=== PATIENT | female | born 1970 | race Caucasian/White ===

== ENCOUNTER 2019-07-24 00:44 | Observation (INO) ==
[2019-07-24] MEDS ORDERED: *HR* OxyCODONE/APAP 5/325 TABLET PO ONE (01:05)
[2019-07-24] MEDS ORDERED: Tdap (Boostrix) Vaccine 0.5 ML SYRINGE IM ONE (01:05)
--- NOTE | 2019-07-24 01:05 | Emergency Department Note ---
Disposition Clinical Impression: Cellulitis of lower extremity Qualifiers: Laterality: unspecified laterality Qualified Code(s): L03.119 - Cellulitis of unspecified part of limb Disposition: Admitted As Inpatient Condition: Fair Time of Disposition: 02:53 General Adult HPI - General Chief complaint: ED Extremity Problem,Nontraumatic Stated complaint: BLE redness/pain Time Seen by Provider: 07/24/19 00:52 Source: patient, family Limitations: no limitations Nursing Notes Reviewed: Yes Vital Signs Reviewed: Yes - History of Present Illness HPI Narrative: 48 year old female presents with bilateral lower extremities redness and swelling. Pt stated it started from a spider bite 4 months ago in left foot. The redness and swelling are spreading from left foot to right malin. Pt reported worsening pain and swelling now. No chills and fever. No history of diabetes. Pt denied any treatment since it happened. out of date TD vaccination. Onset (ago): month(s) (4) Pain Scale: 9 - Related Data Home Medications Medication Instructions Recorded Confirmed No Known Home Drugs 07/24/19 07/24/19 Allergies Allergy/AdvReac Type Severity Reaction Status Date / Time No Known Allergies Allergy Verified 07/24/19 00:47 Constitutional: Denies: fever, chills Eyes: Denies: eye pain ENT ED: Denies: ear pain Cardiovascular: Denies: chest pain Respiratory: Denies: cough Gastrointestinal: Denies: abdominal pain Genitourinary: Denies: urgency Musculoskeletal: Denies: back pain Integumentary: Reports: rash, lesions Neurological: Denies: headache Psychiatric: Denies: anxiety Endocrine: Denies: fatigue Hematological/Lymphatic: Denies: easy bleeding Allergic/Immunologic: Denies: facial swelling Past Medical History - Past Medical History Medical history: Reports: no medical history - Social History Smoking Status: Current every day smoker Alcohol use: Reports: none Drug use: Reports: none Physical Exam - General Limitations: no limitations General appearance: alert, in no apparent distress - Head Head exam: atraumatic - Eye Eye exam: Present: normal appearance - ENT ENT exam: normal exam - Neck Neck exam: Present: normal inspection - Chest Chest inspection: Present: normal inspection - Respiratory Respiratory exam: Present: normal lung sounds bilaterally - Cardiovascular Cardiovascular exam: Present: regular rate - Abdominal Exam Abdominal exam: Present: soft, Non-Tender - Expanded Lower Extremity Exam Lower leg exam: Present: tenderness (right malin and lower leg redness, swelling, warmth and tender to palpation, erythematous area: 10x30 cm), swelling. Absent: normal inspection Foot/toe exam: Present: tenderness (dorsal side left foot erythema, swelling, warmth and tender to palpation, erythematous area 6x10 cm), swelling. Absent: normal inspection Course Vital Signs Temperature 98.2 F 07/24/19 00:45 Pulse Rate 92 07/24/19 00:45 Respiratory Rate 20 07/24/19 00:45 Blood Pressure 145/86 07/24/19 00:45 O2 Sat by Pulse Oximetry 100 07/24/19 00:45 Temperature 98.8 F 07/24/19 02:40 Pulse Rate 78 07/24/19 02:40 Respiratory Rate 20 07/24/19 02:40 Blood Pressure 128/78 07/24/19 02:40 O2 Sat by Pulse Oximetry 97 07/24/19 02:40 Oxygen Delivery Oxygen Delivery Room Air Medical Decision Making - MDM Narrative Medical decision making narrative: 48 year old female presents with bilateral legs pain and swelling for 4 months. It started from spider bite on left foot. It got bigger and spread to right malin. Pt denied diabetes. pt didn't seek treatment. Physical exam: right lower leg swelling, erythema, warmth and tender to palpation, peeling skin, clear liquid sipping, no neurovascular deficit in right foot; dorsal side left foot swelling, erythema, warmth and tender to palpation. Impression: cellulites. blood culture and antibiotics given in ER. Pt need to be admitted for IV antib iotics and pain control. Spoke with Hospitalist Dr. Eaton. pt is accepted. CT of bilateral lower extremities ordered to rule out oseteomylitis. - Lab Data Lab results reviewed: Yes I reviewed the patient's lab results. Result diagrams: 07/24/19 01:00 07/24/19 01:00 Lab Results 07/24/19 07/24/19 07/24/19 Range/Units 01:00 01:00 01:18 WBC 10.3 (4.3-11.1) K/mcL RBC 4.61 (3.82-4.97) M/mcL Hgb 12.8 (11.5-15.4) g/dL Hct 40.0 (35.3-44.9) % MCV 86.8 (83.0-100.0) fL MCH 27.8 L (28.0-33.3) pg MCHC 32.0 (31.6-35.5) g/dL RDW 14.9 H (11.5-14.5) % Plt Count 423 H (140-400) K/mcL MPV 9.1 L (9.4-12.4) fL Immature Gran % 0.6 (0-4) % Seg Neutrophils % 58.8 % Lymphocytes % 24.8 % Monocytes % 5.6 % Eosinophils % 9.5 % Basophils % 0.7 % Neutrophils # 6.1 (1.6-8.9) K/mcL Lymphocytes # 2.5 (0.6-4.6) K/mcL Monocytes # 0.6 (0.0-1.3) K/mcL Eosinophils # 1.0 H (0.0-0.6) K/mcL Basophils # 0.1 (0.0-0.2) K/mcL ESR 60 H (0-15) mm/hr Sodium 139 (136-145) mEq/L Potassium 3.8 (3.5-5.1) mEq/L Chloride 102 (98-107) mEq/L Carbon Dioxide 29 (23-29) mEq/L BUN 11 (6-20) mg/dL Creatinine 0.93 (0.60-1.20) mg/dL Est GFR ( Amer) > 60 (> 60) Est GFR (Non-Af Amer) > 60 (> 60) BUN/Creatinine Ratio 12 (6-26) Glucose 95 (70-105) mg/dL Calculated Osmolality 287 (280-300) Lactic Acid (0.5-2.2) mmol/L Calcium 9.3 (8.6-10.3) mg/dL Total Bilirubin 0.3 (0.3-1.0) mg/dL AST 12 L (13-39) Units/L ALT 11 (7-52) Units/L Alkaline Phosphatase 151 H (34-104) Units/L C-Reactive Protein 44 H (Less than 10) mg/L Serum Total Protein 7.5 (6.4-8.9) g/dL Albumin 3.9 (3.5-5.7) g/dL Globulin 3.6 H (2.4-3.5) g/dL Albumin/Globulin Ratio 1.1 (1.1-2.2) 07/24/19 Range/Units 01:18 WBC (4.3-11.1) K/mcL RBC (3.82-4.97) M/mcL Hgb (11.5-15.4) g/dL Hct (35.3-44.9) % MCV (83.0-100.0) fL MCH (28.0-33.3) pg MCHC (31.6-35.5) g/dL RDW (11.5-14.5) % Plt Count (140-400) K/mcL MPV (9.4-12.4) fL Immature Gran % (0-4) % Seg Neutrophils % % Lymphocytes % % Monocytes % % Eosinophils % % Basophils % % Neutrophils # (1.6-8.9) K/mcL Lymphocytes # (0.6-4.6) K/mcL Monocytes # (0.0-1.3) K/mcL Eosinophils # (0.0-0.6) K/mcL Basophils # (0.0-0.2) K/mcL ESR (0-15) mm/hr Sodium (136-145) mEq/L Potassium (3.5-5.1) mEq/L Chloride (98-107) mEq/L Carbon Dioxide (23-29) mEq/L BUN (6-20) mg/dL Creatinine (0.60-1.20) mg/dL Est GFR ( Amer) (> 60) Est GFR (Non-Af Amer) (> 60) BUN/Creatinine Ratio (6-26) Glucose (70-105) mg/dL Calculated Osmolality (280-300) Lactic Acid 1.1 (0.5-2.2) mmol/L Calcium (8.6-10.3) mg/dL Total Bilirubin (0.3-1.0) mg/dL AST (13-39) Units/L ALT (7-52) Units/L Alkaline Phosphatase (34-104) Units/L C-Reactive Protein (Less than 10) mg/L Serum Total Protein (6.4-8.9) g/dL Albumin (3.5-5.7) g/dL Globulin (2.4-3.5) g/dL Albumin/Globulin Ratio (1.1-2.2)
[2019-07-24] MEDS ORDERED: Piperacillin/Tazobactam 3.375 GM in 0.9 % Sodium Chloride Mini Bag 100 ML IVPB ONE (01:08)
[2019-07-24 01:55] LABS: Alanine Aminotransferase 11 Units/L (7-52); Albumin 3.9 g/dL (3.5-5.7); Albumin/Globulin Ratio 1.1 (1.1-2.2); Alkaline Phosphatase 151 Units/L (34-104); Aspartate Amino Transferase 12 Units/L (13-39); BUN/Creatinine Ratio 12 (6-26); Bilirubin,Total 0.3 mg/dL (0.3-1.0); Blood Urea Nitrogen 11 mg/dL (6-20); C-Reactive Protein 44 mg/L (Less than 10); Calcium 9.3 mg/dL (8.6-10.3); Carbon Dioxide 29 mEq/L (23-29); Chloride 102 mEq/L (98-107); Globulin 3.6 g/dL (2.4-3.5); Glucose 95 mg/dL (70-105); Osmolality,Calculated 287 (280-300); Potassium 3.8 mEq/L (3.5-5.1); Sodium 139 mEq/L (136-145); Total Protein 7.5 g/dL (6.4-8.9); eGFR For African Americans > 60 (> 60); eGFR For Non-African Americans > 60 (> 60)
[2019-07-24 02:02] LABS: Basophils # 0.1 K/mcL (0.0-0.2); Basophils % 0.7 %; Eosinophils % 9.5 %; Hemoglobin 12.8 g/dL (11.5-15.4); Immature Granulocytes % 0.6 % (0-4); Lymphocytes # 2.5 K/mcL (0.6-4.6); Lymphocytes % 24.8 %; Mean Corpuscular Hemoglobin 27.8 pg (28.0-33.3); Mean Corpuscular Volume 86.8 fL (83.0-100.0); Mean Platelet Volume 9.1 fL (9.4-12.4); Monocytes # 0.6 K/mcL (0.0-1.3); Monocytes % 5.6 %; Neutrophils # 6.1 K/mcL (1.6-8.9); Platelet Count 423 K/mcL (140-400); Red Blood Count 4.61 M/mcL (3.82-4.97); Red Cell Distribution Width 14.9 % (11.5-14.5); Segmented Neutrophils % 58.8 %; White Blood Count 10.3 K/mcL (4.3-11.1)
[2019-07-24] MEDS ORDERED: Isovue-370 500 ML BOTTLE IVP ONE (02:30)
--- NOTE | 2019-07-24 06:08 | Internal Med History&Physical ---
Date of Encounter: 07/24/19 Time of Encounter: 05:57 Internal Medicine - H&P: HPI Chief complaint: left foot, and right leg pain. History of present illness: Ms. Alanis is a 48 year old pleasant functional female with past medical history of class III obesity, and no primary xtof8pmf not seen a provider for many years) presented to the ED for left foot and right leg pain. [id number] encounter occurred at 5:30am. Patient reported 4 months ago a lesion developed looking like spider bite was found on her left foot dorsal anterior aspect that was pruritic, and estefany thematous. Patient started applying topical triple antibiotic ointment daily with dressing changes and continued to progress with sloughing of the skin, drainage, erythema. The lesion grew involving the medial aspect of the left foot and new lesion occurring on the right leg anterior aspect of the chin. Both lesions are painful sharp nonradiating localized to the site. Pain worse on the left rated 10/10 no alleviating or exacerbating factor noted. Patient otherwise continues to be functional but is limiting due to any slight touch could cause severe pain. Patient denied any new medications/OTC except what was stated, new clothes/socks, detergent, fox, IV drugs, changes in diet. Due to the purulence patient has started going to dry clean for her cloths. Patient reported FH: Mother-hypertension and CVA ,and Father- otherwise unknown. No recent surgeries. Patient lives in a house, smokes 20+ years, no alcohol or drug intake. The patient denies fever, chills, nausea, vomiting, chest pain, shortness of breath, bone pain, diarrhea, oral lesions, other skin lesions on lower extremities. Patient has not seen a primary care provider for few year and thus does not know if she has any other medical comorbidities. CODE STATUS was discussed and the patient proceeded full code. Contacted family(nafew however his history was not very helpful. Past Med Surg Social Fam HX - Past Medical History Medical history: no medical history Psychiatric history: anxiety - Past Surgical History Additional surgical history: tubal ligation - Social History Smoking Status: Current every day smoker Smokeless Tobacco Status: No Alcohol use: none Drug use: none Internal Medicine - H&P: Meds No Known Home Drugs 07/24/19 [History] Allergy/AdvReac Type Severity Reaction Status Date / Time No Known Allergies Allergy Verified 07/24/19 00:47 All Systems PM: A 10-system review of systems was performed and is negative for pertinent findings except as documented above in the HPI. Review of systems: General: No unintentional weightloss, No fever, No night sweats. Head: No headahce, No injury. Ears: No discharge, No earache Eyes: No drainage, No eye pain Mouth and Throat: No new ulcers, No pain Nose and Sinus: No new congestion, No pain, Respiratory: No cough, No sputum production, No dyspnea Cardiovascular: No chest pain, No palpitations. Gastrointestinal: No nausea, No vomiting. No abdominal pain Genital Tract: No discharge, No pain Urinary Tract: No dysuria, No discharge. MSK: No new/worsening joint pain or new/worsening muscle ache. Endocrine: No cold intolerance, No polyuria Psychological: No suicidal, No homocidal ideation. SKin: + new skin rash,+ erythema. - Constitutional Vitals: Temp Pulse Resp BP Pulse Ox 98 F 90 16 125/89 98 07/24/19 03:19 07/24/19 03:19 07/24/19 03:19 07/24/19 03:19 07/24/19 03:19 Exam: General Appearance: Appearing as age, well-nourished in severe acute distress. Head: Atraumatic normocephalic Skin: Normal texture, normal turgor, warm, dry.left leg erythema, severely painful, no epidermis, and bullae noted on the medial aspect. Right leg e rythamtous draining lesion that is tender to palpation. no crepitus Eyes: Conjunctivae not pale with no erythema, drainage, or ulcers. Anicteric. Neck: No Lymphadenopathy in the anterior/posterior cervical chain. No thyromegaly, masses or ulcers. Trachea midline. Heart: RRR, no murmurs. Capillary refill 3 seconds Lungs: No accessory muscle usage, lungs clear to auscultation bilaterally, no wheezes or crackles. Extremities: No pitting edema, clubbing, cyanosis, or ulcers. Abdomen: Non-distended, normoactive bowel sounds. non-tender to palpation, no hepatomegally. No guarding. Neuro: AOx3 with no new sensory loss or focal deficits. MSK: Strength 5/5 Upper extremity equal bilaterally. Strength 5/5 Lower extremity equal bilaterally Internal Med - H&P Results - Labs CBC & Chem 7: 07/24/19 01:00 07/24/19 01:00 Labs: Short CBC 07/24/19 Range/Units 01:00 WBC 10.3 (4.3-11.1) K/mcL Hgb 12.8 (11.5-15.4) g/dL Hct 40.0 (35.3-44.9) % Plt Count 423 H (140-400) K/mcL Neutrophils # 6.1 (1.6-8.9) K/mcL BMP 07/24/19 01:00 Sodium 139 Potassium 3.8 Chloride 102 Carbon Dioxide 29 BUN 11 Creatinine 0.93 Glucose 95 Calcium 9.3 Liver Function 07/24/19 Range/Units 01:00 Total Bilirubin 0.3 (0.3-1.0) mg/dL AST 12 L (13-39) Units/L ALT 11 (7-52) Units/L Alkaline Phosphatase 151 H (34-104) Units/L Albumin 3.9 (3.5-5.7) g/dL - Impressions ITS Impressions Lower Extremity CT 07/24/19 02:30 IMPRESSION: Diffuse soft tissue swelling and skin thickening of the left lower extremity. Findings favor a vascular etiology but cellulitis is also considered. No acute osseous abnormality. D/ / Kevin Agosto / Kevin Agosto Interpreting Provider: Kevin Agosto Lower Extremity CT 07/24/19 02:30 IMPRESSION: Diffuse soft tissue swelling favoring a vascular cause but cellulitis is not excluded on the basis of this exam. No abscess or drainable collection. No acute osseous abnormality. Degenerative changes of the knee. D/ / Kevin Agosto / Kevin Agosto Interpreting Provider: Kevin Agosto - Summary of Assessment and Plan Summary of Assessment and Plan: 1.Left foot lesion, and right leg malin lesion: approximately 7% involvement. Etiology unclear. Suspected burn, vasculitis, pemphigoid 2/2 topical antibiotics due to skin sloughing, eosinophelia, and bullae noted. No crepitus, or mucocutaneous involvement. Patient continue to be afebrile, no leukocytosis unclear if infection etiology. Dermatology, and Wound care consultation. Hepatitis B/C ab orderred. Continue Zosyn for now. oral oxycodone, and topical lidocaine. 2.Thrombocytosis: peripheral smear pending. 3.Elevated ALP: GGT pending 4.Class 3 obesity: nutrition consultation. DVT prophylaxis: Heparin Dispo: Likely will need more than 2 days stay. - Time Spent With Patient Total time spent is greater than 38 minutes 50% in coordination of care (as documented) at patient's floor/unit and/or counseling patient: Greater than 35 minutes
[2019-07-24] MEDS ORDERED: Ondansetron ODT 4 MG TAB.RAPDIS SL PRN (06:15)
[2019-07-24] MEDS ORDERED: Naloxone 0.4 MG/ML INJ IVP PRN (06:15)
[2019-07-24] MEDS ORDERED: Lidocaine 4% CREAM (LMX) 5 GM TP PRN (06:41)
[2019-07-24] MEDS: *HR* Heparin 5,000 UNIT/ML VIAL SQ SCH ×3 (06:59→21:38)
[2019-07-24] MEDS: *HR* OxyCODONE/APAP 5/325 TABLET PO PRN ×3 (06:59→21:39)
[2019-07-24 09:13] LABS: Estimated Average Glucose 114 mg/dl
[2019-07-24 10:37] LABS: Hepatitis C Virus Antibody Nonreactive (Nonreactive)
[2019-07-24 11:32] LABS: Hepatitis B Surface Antibody 8.33 mIU/mL
[2019-07-24] MEDS ORDERED: Aminoglycoside Consult 1 EACH MC ONE (12:17)
[2019-07-24] MEDS: Miconazole 2% ointment 141 APPL/141 GM TUBE TP SCH (16:46)
--- NOTE | 2019-07-24 16:46 | Dermatology Consult Note ---
Date of Encounter: 07/24/19 Time of Encounter: 16:43 History of Present Illness Reason for Consult: rash History of Present Illness: Laura Alanis is a 48-year-old female admitted to the hospital for bilateral lower extremity red edematous rash. She reports she has had the rash on and off for 4 months. She has severe intermittent itching and pain. She has used antibiotic ointment on her home with no improvement. She does reports yellow clear drainage from the legs. Since admission, she has been on IV antibiotics with little help. Review of Systems General/Constitutional: Patient denies fevers, chills, nor recent unintended weight loss, night sweats, no change in appetite or malaise. Hematologic: Patient denies new or enlarging lumps or bumps. Skin: Patient denies new or changing moles, or rash other than what is mentioned above. Past Med Surg Social Fam HX - Past Medical History Medical history: no medical history Psychiatric history: anxiety - Past Surgical History Additional surgical history: tubal ligation - Social History Smoking Status: Current every day smoker Smokeless Tobacco Status: No Alcohol use: none Drug use: none Medications and Allergies No Known Home Drugs 07/24/19 [History] Allergy/AdvReac Type Severity Reaction Status Date / Time No Known Allergies Allergy Verified 07/24/19 00:47 Examination Vital Signs: Temp Pulse Resp BP Pulse Ox 97.6 F 79 15 128/83 93 07/24/19 15:51 07/24/19 15:51 07/24/19 15:51 07/24/19 15:51 07/24/19 15:51 General Examination: The patient appears alert, oriented X3, in no acute distress, healthy-appearing, normal mood. A detailed skin examination of sites including: scalp, head, neck, face, conjunctive, lids, lips, bilateral lower extremities including feet/digits/toenails, , was completed and found to be normal except: Well defined weeping oozing honey crusted plaques with surrounding dry riverbed cracked scale on left anterior and medial lower leg/ankle and right malin/dorsal foot - Assessment and Plan (1) Rash and other nonspecific skin eruption Current Visit: Yes Status: Acute Favor allergic contact dermatitis from triple antibiotic treatment She may have underlying eczema and bilateral lower extremity edema may be secondary to or part of etiology of severity of her rash Triamcinolone 0.1 % ointment applied to both of her legs under unna boot dressing -- zinc oxide gauze and suha bandage on both legs bilaterally I recommend that she leave dressing in place for 1 week - KEEPING THEM DRY - in 1 week I can follow up with her in the dermatology office ok to stop antibiotics at this time bacterial culture taken today - may be negative or show colonization since kendal cuevas is on IV antibiotics - taken today due to honey colored crust on legs Procedure: Dermatology Date of procedure: 07/24/19 Consult Discharge Plan - Plan Referrals: Darryn Stephenson DO [Primary Care Provider] - 07/30/19 1:00 pm ()
[2019-07-24] MEDS ORDERED: Mag Hydrox/Al Hydrox/Simeth 30 ML UDC PO PRN (18:42)
[2019-07-25 04:23] LABS: Basophils # 0.1 K/mcL (0.0-0.2); Basophils % 0.8 %; Eosinophils # 0.9 K/mcL (0.0-0.6); Eosinophils % 10.4 %; Hematocrit 37.7 % (35.3-44.9); Immature Granulocytes % 0.3 % (0-4); Lymphocytes # 2.2 K/mcL (0.6-4.6); Lymphocytes % 25.2 %; Mean Corpuscular HGB Conc 31.8 g/dL (31.6-35.5); Mean Corpuscular Hemoglobin 27.6 pg (28.0-33.3); Mean Corpuscular Volume 86.7 fL (83.0-100.0); Mean Platelet Volume 9.4 fL (9.4-12.4); Monocytes # 0.4 K/mcL (0.0-1.3); Monocytes % 4.7 %; Neutrophils # 5.1 K/mcL (1.6-8.9); Platelet Count 358 K/mcL (140-400); Red Blood Count 4.35 M/mcL (3.82-4.97); Red Cell Distribution Width 14.9 % (11.5-14.5); Segmented Neutrophils % 58.6 %; White Blood Count 8.7 K/mcL (4.3-11.1)
[2019-07-25 04:35] LABS: Alanine Aminotransferase 9 Units/L (7-52); Albumin 3.3 g/dL (3.5-5.7); Alkaline Phosphatase 131 Units/L (34-104); Aspartate Amino Transferase 11 Units/L (13-39); BUN/Creatinine Ratio 15 (6-26); Bilirubin,Total 0.2 mg/dL (0.3-1.0); Blood Urea Nitrogen 11 mg/dL (6-20); Calcium 8.8 mg/dL (8.6-10.3); Carbon Dioxide 28 mEq/L (23-29); Chloride 104 mEq/L (98-107); Chol/HDL Ratio 4.9 (0-4.9); Cholesterol 211 mg/dL (< 200); Globulin 3.2 g/dL (2.4-3.5); Glucose 93 mg/dL (70-105); HDL Cholesterol 43 mg/dL (40-59); LDL Cholesterol,Calculated 121 mg/dL (0-99); Osmolality,Calculated 285 (280-300); Phosphorous 2.5 mg/dL (2.7-4.5); Potassium 4.2 mEq/L (3.5-5.1); Sodium 138 mEq/L (136-145); Total Protein 6.5 g/dL (6.4-8.9); Triglycerides 234 mg/dL (< 150); eGFR For African Americans > 60 (> 60); eGFR For Non-African Americans > 60 (> 60)
[2019-07-25 05:25] LABS: Platelet Estimate Normal (Normal)
[2019-07-25] MEDS: *HR* OxyCODONE/APAP 5/325 TABLET PO PRN ×2 (06:27→17:38)
[2019-07-25] MEDS: *HR* Heparin 5,000 UNIT/ML VIAL SQ SCH ×3 (06:27→20:34)
--- NOTE | 2019-07-25 07:34 | Event Note ---
Date of Encounter: 07/24/19 Time of Encounter: 10:30 48-year-old female presented with several weeks of bilateral leg rashes with edema. She reported several blisters initially on both lower legs, she applied triple antibiotics, diffuse rash with skin slough off developed. Physical exam, patient does not have toxic appearing, she has no fever, labs showed a normal WBC. A CT of both legs revealed soft tissue edema, suspicious for vascular disease. Dermatology was consulted, skin lesion suspicious for contact dermatitis. IV antibiotics was discontinued. Dressing was applied by the dermatology, patient instructed to keep the dressing in place for a week until seen by dermatology as outpatient.
--- NOTE | 2019-07-25 07:46 | Internal Med Progress Note ---
<Theresa Nj - Last Filed: 07/25/19 12:38> Hospitalist Progress Note - Encounter Date of Encounter: 07/25/19 - Exam Vitals: Temp Pulse Resp BP Pulse Ox 98.2 F 90 16 140/96 97 07/25/19 11:13 07/25/19 11:13 07/25/19 11:13 07/25/19 07:36 07/25/19 11:13 - Time Spent with Patient Total time spent is greater than 50% in coordination of care (as documented) at patient's floor/unit and/or counseling patient: Internal Medicine: Result - Labs CBC & Chem 7: 07/25/19 03:59 07/25/19 03:59 Labs: Short CBC 07/25/19 Range/Units 03:59 WBC 8.7 (4.3-11.1) K/mcL Hgb 12.0 (11.5-15.4) g/dL Hct 37.7 (35.3-44.9) % Plt Count 358 (140-400) K/mcL Neutrophils # 5.1 (1.6-8.9) K/mcL BMP 07/25/19 03:59 Sodium 138 Potassium 4.2 Chloride 104 Carbon Dioxide 28 BUN 11 Creatinine 0.75 Glucose 93 Calcium 8.8 Liver Function 07/25/19 Range/Units 03:59 Total Bilirubin 0.2 L (0.3-1.0) mg/dL AST 11 L (13-39) Units/L ALT 9 (7-52) Units/L Alkaline Phosphatase 131 H (34-104) Units/L Albumin 3.3 L (3.5-5.7) g/dL - Impressions Impressions Lower Extremity CT 07/24/19 02:30 IMPRESSION: Diffuse soft tissue swelling and skin thickening of the left lower extremity. Findings favor a vascular etiology but cellulitis is also considered. No acute osseous abnormality. D/ / 07/24/2019 08:04:58 Kevin Agosto / katherin Interpreting Provider: Kevin Agosto Lower Extremity CT 07/24/19 02:30 IMPRESSION: Diffuse soft tissue swelling favoring a vascular cause but cellulitis is not excluded on the basis of this exam. No abscess or drainable collection. No acute osseous abnormality. Degenerative changes of the knee. D/ / 07/24/2019 08:06:37 Kevin Agosto / katherin Interpreting Provider: Kevin Agosto Consult Discharge Plan - Plan Referrals: Darryn Stephenson DO [Primary Care Provider] - 07/30/19 1:00 pm () - Attending Attestation I examined this patient and my medical decision-making was reviewed with the Resident Physician Dr Sanderson. I agree with the documented findings, disposition and treatment plan as described except to the extent set forth below. Ms Alanis is being observed for BL LE lesions with allergic dermatits and suspected mild cellulitis awake, pleasant, overall pain improved, able to ambulate, no fevers, chills, n/v gen- alert, awake,appears stated age cv- reg rate and rhythm, normal s1,s2,no pitting le edema lungs- ctabl, norm resp effort skin- dressing removed, open wounds RLE and LLE without drainage, red base, no bleeding, there are areas of mild erythema + warmth on the legs elsewhere surrounding the open wounds neuro- AAOx3 Allergic dermatitis w suspected mild cellulitis Hep screen neg, prelim vasc report no DVT -appreciate derm input, cont derm recommended tx, will add doxy and treat with course of abx for suspected mild cellulitis -SW consult to determine wound care on dc Thrombocytosis on peripheral smear w eosinophils- fu outpt with pcp Elevated alk phos, downtrending- GGT wnl, will have pcp recheck outpt further dx and plan as noted by resident <Wilner Sanderson - Last Filed: 07/25/19 13:17> Hospitalist Progress Note - Encounter Date of Encounter: 07/25/19 Time of Encounter: 07:45 - Subjective Interval History: Pt is awake, in bed, comfortable. No acute events overnight. Reports that her right leg and left ankle pain have improved considerably. She feels well, denies fever, chills, cp, sob. - Exam Vitals: Temp Pulse Resp BP Pulse Ox 98.1 F 81 16 140/96 96 07/25/19 07:36 07/25/19 07:36 07/25/19 07:36 07/25/19 07:36 07/25/19 07:36 Exam: GA: A&Ox3, comfortable, NAD. Head: Atraumatic, normocephalic. Skin: BLE wounds bandaged, no drainage, non tender to palpation. Eyes: PERRL, normal conjunctiva. Heart: RRR, S1/S2 WNL, no murmurs, rubs, gallops. Lungs: Lungs clear to auscultation bilaterally, no wheezes, rales, rhonchi. Extremities: No pitting edema, clubbing, cyanosis, or ulcers. Abdomen: Non-distended, normoactive bowel sounds. non-tender to palpation. No guarding. Neuro: No focal deficits, CN grossly intact. Psych: Normal mood and affect. - Assessment and Plan (1) Allergic contact dermatitis Current Visit: Yes Status: Suspected Assessment and Plan: Possible allergic contact dermatitis secondary to triple abx therapy with underlying eczema per dermatology. There is still concern for an infectious process so wound cultures were performed. Awaiting results. - 0.1% Triamcinolone with zinc guaze wrapped with suha bandage per derm with 1 week follow-up. (2) Rash and other nonspecific skin eruption Current Visit: Yes Status: Acute Assessment and Plan: Patient with an erythematous, pruritic, painful rash of the BLE for 4 months. Worsened after use of triple antibiotic ointment. There is concern of allergic contact dermatitis with underlying eczema per dermatology. - 0.1% Triamcinolone with zinc guaze wrapped with suha bandage per derm. - Awaiting bacterial cultures. (3) Cellulitis of lower extremity Current Visit: Yes Status: Suspected Assessment and Plan: Patient is afebrile, without leukocytosis. WBC count of 8.7. There is still concern for underlying infection secondary to chronic pruritus and/or exposure to open wounds. - IV Zosyn has been discontinued. We will de-escalate IV abx therapy and start patient on IV doxycycline 100 mg IV. - Anticipate discharge tomorrow on oral doxycycline. - Social work assessment for possible home wound care. (4) Obesity, morbid, BMI 40.0-49.9 Current Visit: Yes Status: Chronic - Time Spent with Patient Total time spent is greater than 50% in coordination of care (as documented) at patient's floor/unit and/or counseling patient: Internal Medicine: Result - Labs CBC & Chem 7: 07/25/19 03:59 07/25/19 03:59 Labs: Short CBC 07/25/19 Range/Units 03:59 WBC 8.7 (4.3-11.1) K/mcL Hgb 12.0 (11.5-15.4) g/dL Hct 37.7 (35.3-44.9) % Plt Count 358 (140-400) K/mcL Neutrophils # 5.1 (1.6-8.9) K/mcL BMP 07/25/19 03:59 Sodium 138 Potassium 4.2 Chloride 104 Carbon Dioxide 28 BUN 11 Creatinine 0.75 Glucose 93 Calcium 8.8 Liver Function 07/24/19 07/25/19 Range/Units 07:26 03:59 Total Bilirubin 0.2 L (0.3-1.0) mg/dL GGT 17 (1-24) Units/L AST 11 L (13-39) Units/L ALT 9 (7-52) Units/L Alkaline Phosphatase 131 H (34-104) Units/L Albumin 3.3 L (3.5-5.7) g/dL - Impressions Impressions Lower Extremity CT 07/24/19 02:30 IMPRESSION: Diffuse soft tissue swelling and skin thickening of the left lower extremity. Findings favor a vascular etiology but cellulitis is also considered. No acute osseous abnormality. D/ / 07/24/2019 08:04:58 Kevin pandey Interpreting Provider: Kevin Agosto Lower Extremity CT 07/24/19 02:30 IMPRESSION: Diffuse soft tissue swelling favoring a vascular cause but cellulitis is not excluded on the basis of this exam. No abscess or drainable collection. No acute osseous abnormality. Degenerative changes of the knee. D/ / 07/24/2019 08:06:37 Kevin pandey Interpreting Provider: Kevin Agosto <Wilner Sanderson - Last Filed: 07/25/19 13:17> (3) Cellulitis of lower extremity Qualifiers: Laterality: unspecified laterality Qualified Code(s): L03.119 - Cellulitis of unspecified part of limb
[2019-07-25] MEDS ORDERED: Piperacillin/Tazobactam 3.375 GM in Water for inj. (sterile) 20 ML IVP SCH (09:00)
[2019-07-25] MEDS: Miconazole 2% ointment 141 APPL/141 GM TUBE TP SCH (09:21)
[2019-07-25] MEDS: Doxycycline 100 MG in 0.9 % Sodium Chloride Mini Bag 100 ML IVPB SCH (17:34)
[2019-07-26] MEDS: *HR* OxyCODONE/APAP 5/325 TABLET PO PRN (04:28)
[2019-07-26 04:52] LABS: Basophils # 0.1 K/mcL (0.0-0.2); Basophils % 0.7 %; Eosinophils # 0.8 K/mcL (0.0-0.6); Hematocrit 39.6 % (35.3-44.9); Hemoglobin 12.6 g/dL (11.5-15.4); Immature Granulocytes % 0.6 % (0-4); Lymphocytes # 2.3 K/mcL (0.6-4.6); Mean Corpuscular HGB Conc 31.8 g/dL (31.6-35.5); Mean Corpuscular Hemoglobin 27.6 pg (28.0-33.3); Mean Corpuscular Volume 86.7 fL (83.0-100.0); Mean Platelet Volume 8.6 fL (9.4-12.4); Monocytes # 0.3 K/mcL (0.0-1.3); Neutrophils # 4.9 K/mcL (1.6-8.9); Platelet Count 414 K/mcL (140-400); Red Blood Count 4.57 M/mcL (3.82-4.97); Red Cell Distribution Width 14.8 % (11.5-14.5); Segmented Neutrophils % 57.7 %; White Blood Count 8.4 K/mcL (4.3-11.1)
[2019-07-26 05:16] LABS: BUN/Creatinine Ratio 13 (6-26); Blood Urea Nitrogen 10 mg/dL (6-20); Calcium 8.6 mg/dL (8.6-10.3); Carbon Dioxide 26 mEq/L (23-29); Chloride 104 mEq/L (98-107); Glucose 87 mg/dL (70-105); Osmolality,Calculated 284 (280-300); Potassium 3.7 mEq/L (3.5-5.1); Sodium 138 mEq/L (136-145); eGFR For African Americans > 60 (> 60); eGFR For Non-African Americans > 60 (> 60)
[2019-07-26] MEDS: Doxycycline 100 MG in 0.9 % Sodium Chloride Mini Bag 100 ML IVPB SCH (05:49)
[2019-07-26] MEDS: *HR* Heparin 5,000 UNIT/ML VIAL SQ SCH (05:51)
--- NOTE | 2019-07-26 08:22 | Discharge Summary ---
<Theresa Nj - Last Filed: 07/26/19 12:26> Orders not resulted at time of discharge: Pending orders 07/24/19 01:18 Culture,Blood [BC] Stat Date of Encounter: 07/26/19 Hospital course: Ms. Alanis is a 48 year old female - Time Spent with Patient Total time spent providing and/or coordinating discharge services: - Discharge Medications Prescriptions: New Doxycycline 100 mg PO BID 6 Days #12 capsule Home Medications: Doxycycline 100 mg PO BID 6 Days #12 capsule 07/26/19 [Rx] Allergies/Adverse Reactions: Allergy/AdvReac Type Severity Reaction Status Date / Time No Known Allergies Allergy Verified 07/24/19 00:47 Date of admission: 07/24/19 02:44 Primary care physician: Darryn Stephenson DO Consults: 07/24/19 06:36 Consult to Dermatology [CONS] Routine Consulting Provider: [facility] [place] Reason for Consult: concern for burn, vasculitis, pemphigoid, pyogenic, Call Completed: No 07/24/19 06:38 Consult to Nutrition [CONS] Routine Comment: Consulting Provider: NUTRITION Reason for Dietary Consult: Other Other:: Severe malnutrition. 07/24/19 06:41 Consult to Wound Care [CONS] Routine Reason for Consult: left foot and right leg wound. 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 You need to see her in the office in a week as well as follow up with your primary care doctor as scheduled. If you develop fevers, chills or worsening symptoms on your legs (pain, redness, swelling or drainage from wounds) contact your doctor immediately. You have high cholesterol. We recommend diet and exercise changes and follow up for repeat labs with your PCP in three months for a re check and to see if you need to be started on a cholesterol medication. You also had abnormally high platelet counts and alkaline phosphorus counts (a blood cell type and liver enzyme type). These labs MUST be followed up by your doctor as they can indicate an underlying disease process. wound dressing care: Triamcinolone 0.1 % ointment applied to both your legs under unna boot dressing -- zinc oxide gauze and suha bandage on both legs - all applied before discharge. Leave dressing in place for 1 week - KEEPING THEM DRY - until you follow up in the dermatology office. YOU NO LONGER NEED TO PLAN TO CHANGE DRESSING - Diet and Activity Activity: increase activity as tolerated Diet: advance to your usual diet - Attending Attestation I examined this patient and my medical decision-making was reviewed with the Resident Physician Dr Sanderson. I agree with the documented findings, disposition and treatment plan as described except to the extent set forth below. Ms Alanis was observed for BL LE lesions with allergic dermatits and suspected mild cellulitis awake, pleasant, RN at bedside changing dressing. Pt feels great. no pain in legs, RN and pt note them to look significantly better. no drainage or pus. no fevers or chills. ambulating without difficulty. She has been educated how to change dressings and will be sent with supplies. She has no hesitancy in changing dressing on her own. Discharge plan discussed in detail. she has no questions gen- alert, awake,appears stated age cv- reg rate and rhythm, normal s1,s2 lungs- ctabl, norm resp effort skin- dressing removed on RLE red base to areas of broken skin, no pus or bleeding, now mild erythema right lower leg and normal warmth neuro- AAOx3 Allergic dermatitis w suspected mild cellulitis -appreciate derm input, cont derm recommended tx which is different than wound care team rec, clarified with pt on dc, PO doxy course for suspected mild cellulitis -fu with derm and pcp Thrombocytosis on peripheral smear w eosinophils- fu outpt with pcp Elevated alk phos, downtrending- GGT wnl, will have pcp recheck outpt -discussed with pt and she will follow up further dx and plan as noted by resident time spent on dc 40 min <Wilner Sanderson - Last Filed: 07/26/19 14:39> - NOTES TO OUTPATIENT PROVIDER Notes to Outpatient Provider: Mrs. Alanis was admitted to [facility] on 07/24/19 with bilateral lower extremity erythema and swelling. She reported a 4 month history of bilateral ankle, lower leg pain, swelling, edema treated with triple antibiotic and dressing changes w/o improvement. Any slight touch increaased her pain significantly. Her pain was controlled and she was treated for suspected cellulitis. Pt was started on Zosyn and dermatology consulted. Dermatology suspected allergic contact dermatitis secondary to triple antibiotic ointment. She was started on 0.1% Triamcinolone topical with rapid improvement in her symptoms. There was still concern for secondary cellulitis, antibiotics were de- escalated to IV doxycycline w/plan to discharge on PO doxy for a total of 7 days. No PCP to date, recommend PCP provider. F/U with dermatology in 1 week. Orders not resulted at time of discharge: Pending orders 07/24/19 01:18 Culture,Blood [BC] Stat Date of Encounter: 07/26/19 Time of Encounter: 08:22 - Discharge Diagnosis (1) Allergic contact dermatitis Priority: Primary Status: Suspected Assessment and Plan: Possible allergic contact dermatitis secondary to triple abx therapy with concern for overlying infection and/or underlying eczema per dermatology eval. - Patient was dressed with Triamcinolone 0.1 % ointment under unna boot dressing with zinc oxide gauze and suha bandage prior to discharge. - Dressing to be in place for 1 week. - Derm f/u appointment confirmed for 08/01/19. Qualifiers: Contact dermatitis trigger: unspecified trigger Qualified Code(s): L23.9 - Allergic contact dermatitis, unspecified cause (2) Cellulitis of lower extremity Priority: Secondary Status: Suspected Assessment and Plan: Patient is afebrile, without leukocytosis. Concern for underlying cellulitis. - IV Doxy d/c with total of 1 day of dosing. - Patient given prescription for Doxycycline 100mg PO BID for 6 days. Complete abx course of 7 days. - F/U with dermatology in 1 week. - PCP follow-up. Qualifiers: Laterality: unspecified laterality Qualified Code(s): L03.119 - Cellulitis of unspecified part of limb (3) HTN (hypertension) Priority: Secondary Status: Chronic Assessment and Plan: Patient with significant blood pressure elevations during admission. BP ranges 182-101/104-68. Average BP was 150s/85s. - Pt has an approximate lifetime ASCVD risk of 39% per ACC risk calculator. - Recommend PCP follow-up for HTN management. Qualifiers: Hypertension type: essential hypertension Qualified Code(s): I10 - Essential (primary) hypertension (4) Obesity, morbid, BMI 40.0-49.9 Priority: Secondary Status: Chronic Assessment and Plan: Patient with class 3 obesity. Has not seen PCP in many years. No current medications. Lipid panel revealed total chol 211, triglycerides 234, LDL 121. BP was - Recommend PCP follow-up for weight, hyperlipidemia management. (5) Thrombocytosis Priority: Secondary Status: Chronic Assessment and Plan: Patient with idiopathic, asymptomatic thrombocytosis. Platelet count of 423-358 on admission. Elevations of alkaline phosphatase also noted to be 151. - Recommend PCP f/u for further evaluation. Hospital course: Ms. Alanis is a 48 year old female who presented to [facility] with a 4 month history of erythematous, pruritic, weeping BLE lesion/rash. She stated that she was treating the region with daily dressing changes and triple antibiotic ointment without change and progressive severe pain, even with light touch. She denied new medications other than the abx ointment. No new environmental changes were reported. The patient stated that she has not seen a PCP in many years and is unsure of her medical history other than obesity. Examination revealed bilateral lower extremity erythemic, weeping, oozing plaques at the right leg distal to the knee to the ankle and left ankle. She had severe pain with light palpation. Laboratory eval revealed thrombocytosis (plt count 423), Alk phos of 151 and WBC count of 10.3. The patient presented and remained afebrile throughout her admission. Pain was controlled with oral oxycodone and patient was started on IV Zosyn for possible overlying cellulitis. Topical antifungals were started per wound care recommendations with resolution of pain and discomfort. Dermatology was consulted and determined that the lower ext lesions were likely allergic contact dermatitis secondary to OTC triple abx use. Dermatology recommended discontinuation of antibiotics and application of Triamcinolone 0.1 % ointment to both of her legs under unna boot dressing with zinc oxide gauze and suha bandage. On further evaluation there still appeared to be some mild overlying cellulitis and we re-started abx with 1 day of IV doxycycline on 07/25/19. Patient tolerated the therapy well and was discharged on 100 mg Doxycycline BID for 6 days to complete a total abx course of 7 days. Dermatology placed the patients recommended dressing on 07/26/19 with plan to leave in place for 1 week with confirmed f/u appt on 08/01/19. Discharge discussed with: patient, nurse, case management - Time Spent with Patient Total time spent providing and/or coordinating discharge services: Time spent: Greater than 30 minutes Date of admission: 07/24/19 02:44 Primary care physician: Darryn Stephenson DO Consults: 07/24/19 06:36 Consult to Dermatology [CONS] Routine Consulting Provider: Dermatology [place] Reason for Consult: concern for burn, vasculitis, pemphigoid, pyogenic, Call Completed: No 07/24/19 06:38 Consult to Nutrition [CONS] Routine Comment: Consulting Provider: NUTRITION Reason for Dietary Consult: Other Other:: Severe malnutrition. 07/24/19 06:41 Consult to Wound Care [CONS] Routine Reason for Consult: left foot and right leg wound. Call Completed: No Discharging clinician: Wilner Sanderson Anticipated date of discharge: 07/26/19 - Constitutional Vitals: Temp Pulse Resp BP Pulse Ox 98.3 F 89 17 160/82 98 07/26/19 07:55 07/26/19 07:55 07/26/19 07:55 07/26/19 07:55 07/26/19 07:55 Exam: GA: A&Ox3, comfortable, NAD. Head: Atraumatic, normocephalic. Eyes: PERRL, normal conjunctiva. Heart: RRR, S1/S2 WNL, no murmurs, rubs, gallops. Lungs: Lungs clear to auscultation bilaterally, no wheezes, rales, rhonchi. Extremities: No pitting edema, clubbing, cyanosis. Abdomen: Non-distended, normoactive bowel sounds. non-tender to palpation. No guarding. Neuro: No focal deficits, CN grossly intact. Skin: BLE with significant erythemic, weeping, oozing plaques at the right leg distal to the knee to the ankle, left ankle. Psych: Normal mood and affect.
[2019-07-26] MEDS: Miconazole 2% ointment 141 APPL/141 GM TUBE TP SCH (09:28)
[2019-07-26 12:07] VITALS: BP 168/82
== END 2019-07-26 12:18 | disposition home or self-care (01) ==
LOC: 3BNU 00:44 → EMEROOARM 00:44 → SUATTDRO 02:44 → 3BNU 03:08
PROVIDERS: ADMIT Family Medicine; ATTEND Internal Medicine